=== PATIENT | male | born 1990 | race Caucasian/White ===

== ENCOUNTER 2023-04-05 14:06 | Emergency (ER) | payer BC, SELFPAY ==
[2023-04-05 14:07] VITALS: BP 121/89; PULSE 111; RESP 18; TEMP 36.4; O2SAT 100; BMI 26.9
--- NOTE | 2023-04-05 16:01 | EDS_ITS ---
HPI History of Present Illness Chief Complaint: ETOH Intox Informant: patient Narrative Narrative: Patient states he is an alcoholic seeking detox. He drinks between 4 and 8 tall boy beers daily, sometimes a lot more. has been doing this for maybe a year or so. He has not been into detox before. His last drink was 2 days ago. He states other than craving to drink he has no other symptoms. States he stopped cold turkey wants and did not drink for about 2 weeks but and ended up relapsing. He did not have any issues during those 2 weeks other than craving. He is concerned he will not be able to stay away from alcohol, other than that episode he has not been able to stop for more than 24 hours. He denies any physical illness recently, injury, suicidality, or other drug use. Patient states the reason that he wants to stop is that he has a new job, he went to a bar this past weekend, he drink a lot more than usual and then does not remember driving home. He states this concerned him to the point where he realized he needs to make a change in order to better his life. [facility] Medical History (Updated 04/05/23 @ 16:[address] Brodie Zee MD) Alcoholism Home Medications buspirone 10 mg tablet 10 mg PO DAILY 04/05/23 [History Last Taken 04/05/23] Allergy/AdvReac Type Severity Reaction Status Date / Time No Known Allergies Allergy Verified 04/05/23 14:07 Social History Smoking Status: Current every day smoker tobacco type: cigarettes ROS ROS ED Constitutional Constitutional ED: Denies chills or fever(s) Eyes Eyes: Denies change in vision or diplopia ENT ENT ED: Denies rhinorrhea or sore throat Cardiovascular Cardiovascular: Denies chest pain or palpitations Respiratory/Chest Respiratory/Chest: Denies cough or dyspnea Gastrointestinal Gastrointestinal: Denies abdominal pain, diarrhea, nausea or vomiting Genitourinary Genitourinary ED: Denies dysuria or hematuria Musculoskeletal Musculoskeletal: Denies back pain or neck pain Integumentary Denies abscess or rash Neurologic Neurologic: Denies headache(s), paresthesias or weakness Psychiatric Psychiatric: Denies anxiety or suicidal thoughts EXAM Physical Exam Const Vital Signs: 04/05/23 14:07 Temperature 97.5 F L Temperature Source Temporal Pulse Rate 111 H Respiratory Rate 18 Blood Pressure 121/89 H Blood Pressure Mean 99 Pulse Ox 100 Oxygen Delivery Method Room Air Positive well nourished and well developed General Appearance ED: well developed and NAD HEENT Reports moist mucous membranes normocephalic and atraumatic Eyes PERRL and EOMs intact bilaterally Neck full ROM and supple Resp normal respiratory effort and clear to auscultation bilaterally Cardio regular rate, regular rhythm and no murmurs GI non-tender and non-distended Auscultation: normoactive bowel sounds Palpation: soft Back/Spine no CVA tenderness General Back: other FROM Extremity normal to inspection General Extremety ED: Negative for edema, pulses abnormal or tenderness General Extremity: Negative for edema or pulses abnormal Neuro oriented x3, CN's II-XII intact bilaterally and no sensory deficits noted Sensorium / Orientation: awake and alert Motor Exam: strength 5/5 throughout Skin no rashes or lesions noted and no wounds MDM MDM MDM Narrative Medical decision making narrative: Labs obtained patient medically cleared. He is not in withdrawal. He has not had a drink in almost 48 hours. Given this, I did discuss with hospitalist, who states they have little to offer him since we do not have Vivitrol here, I tend to agree, I do not think he needs to be admitted medically, and since he is here during business hours I had social work discussed with [facility], and they were able to get him appointment for the morning. I given a work note for today and tomorrow, he is comfortable with that plan. Lab Data Attestation: I reviewed the patient's lab results. Labs: Laboratory Results - last 24 hr 04/05/23 15:50 WBC 10.3 RBC 4.85 Hgb 15.2 Hct 44.4 MCV 91.5 MCH 31.3 MCHC 34.2 RDW Std Deviation 39.8 RDW Coeff of Raimundo 11.9 Plt Count 297 MPV 9.5 Immature Gran % (Auto) 0.500 Neut % (Auto) 62.8 Lymph % (Auto) 25.8 [place] % (Auto) 6.1 Eos % (Auto) 3.9 Baso % (Auto) 0.9 Absolute Neuts (auto) 6.5 Absolute Lymphs (auto) 2.66 Nucleated RBC % 0 PT 13.7 INR 1.1 Sodium 139 Potassium 3.7 Chloride 109 H Carbon Dioxide 26.0 Anion Gap 4 L BUN 17 Creatinine 1.09 Estim Creat Clear Calc 102.66 Est GFR (MDRD) Af Amer 100 Est GFR (MDRD) Non-Af 83 BUN/Creatinine Ratio 15.6 Glucose 91 Calcium 9.3 Total Bilirubin 0.30 AST 17 ALT 35 Alkaline Phosphatase 95 Total Protein 7.5 Albumin 3.9 Globulin 3.6 Albumin/Globulin Ratio 1.1 Ethyl Alcohol < 3.0 Management Discussion w/another healthcare provider: Hospitalist and greenhouse worker/Case management Discharge Plan Triage Chief Complaint: ETOH Intox ED Provider: Brodie Zee Dx/Rx/DC Orders Clinical Impression: Alcohol dependence Instructions: Alcohol Addiction Prescriptions: No Action buspirone 10 mg tablet 10 mg PO DAILY Stand Alone Forms: ED Work / School Excuse Primary Care Provider: Jn Matthews Referrals: Jn Matthews MD [Primary Care Provider] - [facility] [Non-Staff] - 04/06/23 8:30 am Disposition Disposition: Home, Self Care
[2023-04-05 16:04] LABS: Absolute Lymphocyte Count 2.66 X10^3/uL (0.83-4.51); Absolute Neutrophil Count 6.5 X10^3/uL (2.0-7.7); Basophil# 0.09 X10^3/uL; Basophil% 0.9 % (0-1); Eosinophils% 3.9 % (0-5); Hematocrit 44.4 % (40-54); Hemoglobin 15.2 g/dL (13.0-16.5); Lymphocyte # 2.66 X10^3/ul (0.83-4.51); Lymphocyte % 25.8 % (19-41); Mean Corp Hgb Conc 34.2 g/dL (32-36); Mean Corpuscular Hgb 31.3 pg (27.0-32.0); Mean Corpuscular Volume 91.5 fL (80-94); Mean Platelet Vol. 9.5 fl (6.2-12.0); Monocyte# 0.63 X10^3/uL; Monocyte% 6.1 % (0-10); NRBC Flagged by Analyzer 0 % (0-5); Neutrophil # 6.47 X10^3/uL (2.7-7.7); Neutrophil % 62.8 % (47-70); Platelet Count 297 K/mm3 (150-450); RBC Distribution Width CV 11.9 % (11.6-14.6); RBC Distribution Width SD 39.8 fl (35.1-43.9); Red Blood Count 4.85 M/mm3 (4.6-6.2); White Blood Count 10.3 K/mm3 (4.4-11.0)
[2023-04-05 16:11] LABS: ALB/GLOB Ratio 1.1 RATIO (0.9-2.4); AST(SGOT) 17 U/L (15-37); Alanine Aminotransfer ALT/SGPT 35 U/L (16-61); Albumin, Serum 3.9 g/dL (3.2-5.0); Alkaline Phosphatase 95 U/L (45-117); Anion Gap 4 (5-15); BUN 17 mg/dL (7-18); BUN/Creat Ratio 15.6 RATIO (10-20); Calcium,Total 9.3 mg/dL (8.5-10.1); Chloride 109 mmol/L (98-107); Creatinine, Serum 1.09 mg/dL (0.70-1.30); EST Glomerular Filtration Rate 83 mL/min (>60); Est Glom Filt Rate - Afr Amer 100 mL/min (>60); Estimated Creatinine Clearance 102.66 ml/min; Globulin 3.6 g/dL (2.2-4.2); Glucose 91 mg/dL (74-106); Potassium 3.7 mmol/L (3.5-5.1); Protein, Total 7.5 g/dL (6.4-8.2); Sodium Level 139 mmol/L (136-145)
[2023-04-05 16:17] LABS: International Normalized Ratio 1.1; Prothrombin Time (Protime)PT. 13.7 SECONDS (11.7-14.9)
[2023-04-05 16:28] LABS: Alcohol, Blood (Medical)-Serum < 3.0 mg/dL
--- NOTE | 2023-04-05 16:38 | CM.ED ---
Social Work SW introduced self and role to patient. Pt is here for detox but does not meet criteria due to lack of withdrawal symptoms. Pt reports he does not have [facility] or mental health services with any agency and has never been through treatment. Pt indicated he was drinking about 4 beers daily, sometimes more but also that the last time he drank he used cocaine as well. Pt reports it has been affecting him financially and at work. Pt reports cravings as the major concern because he craves alcohol frequently. SW discussed options with patient and pt was agreeable to trying outpatient services. SW called [facility] treatment navigator and facilitated an intake appointment for tomorrow morning 04/06/2023 at 8:30. Patient given appointment info and was agreeable. Pt also given addiction coping skills handout to assist in managing cravings until he has services. Elsie Maurer THERAPY COORDINATOR, NATURAL RESOURCE E[employer]OMIST
== END 2023-04-05 16:48 | disposition home or self-care (01) ==
PROVIDERS: Emergency Provider Emergency Medicine; PCP Family Medicine; Visit Provider Emergency Medicine
DX: F10.20 Alcohol dependence, uncomplicated (principal); F17.210 Nicotine dependence, cigarettes, uncomplicated
CPT/HCPCS: 80053; 82077; 85025; 85610; 99283; A4216

== ENCOUNTER 2023-07-13 05:40 | Emergency (ER) | payer BC, SELFPAY ==
[2023-07-13 05:40] VITALS: BP 126/96; PULSE 105; RESP 16; TEMP 36.3; O2SAT 97; BMI 27.6
--- NOTE | 2023-07-13 05:56 | RAD_ITS ---
INDICATION: pain EXAMINATION/TECHNIQUE: X-RAY - LEFT XR Foot Min 3 Views COMPARISON: None. FINDINGS: SOFT TISSUES: No significant soft tissue swelling. No radiopaque foreign body detected. BONES/JOINTS: No acute fracture or subluxation. Normal alignment. Preservation of the joint space(s). No suspicious osseous lesion observed. RAD/Foot min 3 Views IMPRESSION: Negative left foot Electronically Signed: Eliu Posadas MD at 6:41 EST ,
--- NOTE | 2023-07-13 05:57 | ED.VIS.LOWEX ---
HPI History of Present Illness Chief Complaint: Lower Extremity Injury Informant: patient Narrative Narrative: Worsening left midfoot pain this morning. Has issues for months. Works on his feet with steel toe boots. Denies any injury events. Pain worse with weightbearing and walking. No medications taken. Denies history of gastric ulcers or kidney injury. Prior similar symptoms: Yes [facility] Medical History Alcoholism Anxiety Depression Home Medications buspirone 10 mg tablet 10 mg PO DAILY 04/05/23 [History Last Taken 04/05/23] ibuprofen 600 mg tablet 600 mg PO Q6H PRN PRN pain #20 TABLETS 07/13/23 [Rx Last Taken Unknown] sertraline 100 mg tablet 100 mg PO DAILY 07/13/23 [History Last Taken Unknown] Allergy/AdvReac Type Severity Reaction Status Date / Time No Known Allergies Allergy Verified 07/13/23 05:45 Social History Smoking Status: Current every day smoker tobacco type: cigarettes ROS ROS ED Constitutional Constitutional ED: Denies chills, fever(s) or sweats Eyes Eyes: Denies change in vision ENT ENT ED: Denies dysphagia or sore throat Cardiovascular Cardiovascular: Denies chest pain, leg edema, palpitations or racing heartbeat Respiratory/Chest Respiratory/Chest: Denies cough, dyspnea or dyspnea on exertion Gastrointestinal Gastrointestinal: Denies abdominal pain, diarrhea, nausea or vomiting Genitourinary Genitourinary ED: Denies dysuria, hematuria or urinary frequency Musculoskeletal Musculoskeletal: Reports extremity pain; Denies back pain or neck pain Integumentary Denies rash or wounds Neurologic Neurologic: Denies headache(s), paresthesias or weakness EXAM Physical Exam Const Vital Signs: 07/13/23 05:40 Temperature 97.4 F L Temperature Source Temporal Pulse Rate 105 H Respiratory Rate 16 Blood Pressure 126/96 H Blood Pressure Mean 106 Pulse Ox 97 Oxygen Delivery Method Room Air Positive well nourished and well developed General Appearance ED: well developed and NAD HEENT Reports moist mucous membranes normocephalic and atraumatic Eyes PERRL, EOMs intact bilaterally and conjunctivae normal General Eye ED: Yes normal appearance of both eyes Neck no lymphadenopathy and supple General: Negative for tenderness Chest Wall Chest: Negative for tenderness Resp normal respiratory effort and normal air movement Effort and Inspection: symmetric chest movement; Negative for respiratory distress Cardio regular rate, regular rhythm and no murmurs Peripheral Pulses: pulses 2+ throughout GI normal to inspection, nondistended, normoactive bowel sounds and non-tender Palpation: Negative for guarding or rebound tenderness present Back/Spine no CVA tenderness and no thoracic nor lumbar tenderness Extremity Extremity Narrative: Lower; no ankle tenderness. Mild tenderness across the midfoot. No plantar fascia tenderness. Second third toes dorsal aspect notes warts nontender. No drainage. General Extremety ED: Yes tenderness; Negative for edema General Extremity: Negative for edema Neuro oriented x3 and no sensory deficits noted Sensorium / Orientation: awake and alert Skin no rashes or lesions noted and no wounds MDM MDM MDM Narrative Medical decision making narrative: Interventions / MDM: Differential diagnosis: Sprain, warts Diagnosis considered but do not suspect: Fracture however x-ray negative. My EKG interpretation: N/A Imaging independently reviewed and interpreted by myself: Left foot 3 view x-ray: No fracture noted. External documents reviewed: N/A Test considered but not ordered:N/A ED course: Patient midfoot pain is worsening. Motrin ordered x-ray ordered for further evaluation. X-ray negative. Work note and prescription for NSAIDs with podiatry follow-up. Re-evaluation: stable Disposition discussed with patient/family/significant other: Patient Case discussed with consulting clinician: N/A This note was generated with [employer] dictation software. It may contain incorrect words, spelling, and punctuation that were not noted in checking the note before signing. Radiography Diagnostic Testing: Clinical Impression(s) from Imaging Studies Foot X-Ray 07/13/23 05:56 IMPRESSION: Negative left foot Electronically Signed: Eliu Posadas MD at 6:41 EST , Discharge Plan Triage Chief Complaint: Lower Extremity Injury ED Provider: Morteza Benitez Dx/Rx/DC Orders Clinical Impression: Warts of foot, Sprain of left foot Instructions: ED Foot Sprain, ED Warts, Nongenital Prescriptions: New ibuprofen 600 mg tablet 600 mg PO Q6H PRN PRN (Reason: pain) Qty: 20 0RF No Action buspirone 10 mg tablet 10 mg PO DAILY sertraline 100 mg tablet 100 mg PO DAILY Patient Comments: take 1/2 tablet by mouth once daily Stand Alone Forms: ED Work / School Excuse Primary Care Provider: Jn Matthews Referrals: Myron Telles DPM [Med Staff - Active Staff] - 3-5 Days Jn Matthews MD [Primary Care Provider] - Activity Restrictions/Additional Instructions: X-ray of foot negative. Take medication as prescribed. Follow-up with podiatry for evaluation and treatment of your warts. Disposition Disposition: Home, Self Care Discharge Date/Time: 07/13/23 06:41
[2023-07-13] MEDS: Ibuprofen 600 MG Tablet PO (06:12)
== END 2023-07-13 06:41 | disposition home or self-care (01) ==
PROVIDERS: Emergency Provider Emergency Medicine; PCP Family Medicine; Visit Provider Emergency Medicine
DX: B07.9 Viral wart, unspecified (principal); F17.210 Nicotine dependence, cigarettes, uncomplicated; S93.602A Unspecified sprain of left foot, initial encounter; X58.XXXA Exposure to other specified factors, initial encounter; F41.9 Anxiety disorder, unspecified; F32.A Depression, unspecified
CPT/HCPCS: 73630; 99282

== ENCOUNTER → 2023-07-21 | Outpatient (CLI) | payer BC, SELFPAY ==
[2023-07-21 13:16] LABS: ALB/GLOB Ratio 1.1 RATIO (0.9-2.4); AST(SGOT) 22 U/L (15-37); Alanine Aminotransfer ALT/SGPT 40 U/L (16-61); Albumin, Serum 4.1 g/dL (3.2-5.0); Alkaline Phosphatase 89 U/L (45-117); Anion Gap 8 (5-15); BUN 16 mg/dL (7-18); BUN/Creat Ratio 14.4 RATIO (10-20); Chloride 108 mmol/L (98-107); Creatinine, Serum 1.11 mg/dL (0.70-1.30); EST Glomerular Filtration Rate 81 mL/min (>60); Est Glom Filt Rate - Afr Amer 98 mL/min (>60); Globulin 3.7 g/dL (2.2-4.2); Glucose 77 mg/dL (74-106); Potassium 3.8 mmol/L (3.5-5.1); Protein, Total 7.8 g/dL (6.4-8.2); Sodium Level 139 mmol/L (136-145)
== END | disposition home or self-care (01) ==
LOC: LAB 10:28
PROVIDERS: PCP Family Medicine; Referring Provider Podiatrist; Visit Provider Podiatrist
DX: B35.3 Tinea pedis (principal)
CPT/HCPCS: 36415; 80053

== ENCOUNTER 2024-07-28 01:45 | Emergency (ER) | payer OTHER, SELFPAY ==
[2024-07-28 01:45] VITALS: BP 143/103; PULSE 100; RESP 14; TEMP 36.6; O2SAT 97; BMI 28.0
--- NOTE | 2024-07-28 02:00 | CT_ITS ---
EXAM: CT HEAD WITHOUT INTRAVENOUS CONTRAST CLINICAL INDICATION: GOMEZ TECHNIQUE: Multiple axial images were obtained of the head without intravenous contrast. This CT exam was performed using one or more of the following dose reduction techniques: automated exposure control, adjustment of the mA and/or kV according to patient size, and/or use of iterative reconstruction technique. RADIATION DOSE: CTDIvol = 44.99 mGy, DLP = 812.98 mGy-cm COMPARISON: No relevant prior studies available. FINDINGS: BRAIN AND EXTRA-AXIAL SPACES: Unremarkable. No intra- or extra-axial hemorrhage. No evidence of acute infarct. No intracranial mass or mass effect. There is preservation of the duran/white matter interface. Posterior fossa structures are unremarkable. Ventricles are appropriate for age. No hydrocephalus. Basal cisterns are patent. BONES/JOINTS: Unremarkable. No discrete lytic or blastic abnormalities. SINUSES: Unremarkable as visualized. Clear. MASTOID AIR CELLS: Unremarkable. Clear. ORBITS: Visualized globes, extraocular muscles, optic nerves and retrobulbar fat appear unremarkable. CT/Brain/Head without Contrast IMPRESSION: Negative head/brain CT without intravenous contrast. Electronically Signed: Myron Butt MD at 2:32 EST ,
--- NOTE | 2024-07-28 02:34 | EDS_ITS ---
HPI History of Present Illness Chief Complaint: Headache Narrative Narrative: Chief complaint and HPI: Headache. 34-year-old male with no significant past medical history presents for evaluation of resolved headache. Patient states that he was playing a video game when he developed a headache. He states the headache started gradually but then became very severe in nature. He states it lasted about 10 minutes. He states that the pain was behind his left eye. He states that he had some mild blurry vision and tearing of the left eye as well. He states that he felt like his nose was running but it was not. Currently denies headache. Headache was approximately 30 minutes prior to arrival. Patient denies any trauma. Denies any weakness, numbness/tingling. Denies any URI fever, chills, URI symptoms, chest pain, shortness of breath, Alcides pain, nausea, vomiting. Review of systems: See HPI Medications: As listed on the chart Allergies: As listed on the chart PFSH: Per chart Vital signs: As listed on the chart. Reviewed. Physical exam: Gen: A&O x3, NAD Head: Normocephalic, atraumatic Eyes: No sclera icterus, conjunctiva clear, PERRL, EOMI ENT: TMs clear BL, moist mucous membranes, posterior oropharynx unremarkable, uvula midline, no facial tenderness/sinus tenderness Neck: Trachea midline, No JVD, Full ROM, No meningismus CV: RRR, no murmurs, no peripheral edema Resp: Lungs CTA BL, no w/r/c Musc: Full ROM, no deformity Skin: Warm, dry, no rash Neuro: Alert, oriented, grossly intact, sensation intact Psych: Cooperative, appropriate mood and affect [facility] Medical History Alcoholism Anxiety Depression Home Medications ?Medication ?Instructions ?Recorded ?Last Taken ?Type buspirone 10 mg tablet 10 mg PO DAILY 04/05/23 04/05/23 History Allergy/AdvReac Type Severity Reaction Status Date / Time No Known Allergies Allergy Verified 07/13/23 05:45 Social History Smoking Status: Current every day smoker tobacco type: cigarettes EXAM Physical Exam Const Vital Signs: 07/28/24 01:45 Temperature 97.8 F Temperature Source Oral Pulse Rate 100 Respiratory Rate 14 Blood Pressure 143/103 H Blood Pressure Mean 116 Pulse Ox 97 Oxygen Delivery Method Room Air MDM MDM MDM Narrative Medical decision making narrative: 34-year-old male presents for evaluation of resolved headache. Headache lasted approximately 10 minutes. Associated symptoms were pain behind the left eye, tearing of the left eye, feelings of rhinorrhea. Patient denies history of headaches. Differential diagnosis includes but is not limited to cluster headache, tension headache, migraine. Patient currently not in any pain therefore pain medicine not given. Suspect likely cluster headache however given that he rated his pain as severe and has never had pain like this before we will get CT head to rule out any acute intracranial abnormality. CT head without any acute intracranial abnormality. On reassessment, patient is still not having any headache. Patient stable to discharge home. Suspect cluster headache. Follow-up with PCP. Impression: 1. Headache, resolved 2. Suspect cluster headache Radiography Diagnostic Testing: Clinical Impression(s) from Imaging Studies Brain CT 07/28/24 02:00 IMPRESSION: Negative head/brain CT without intravenous contrast. Electronically Signed: Myron Butt MD at 2:32 EST , Discharge Plan Triage Chief Complaint: Headache ED Provider: Ki Burks Dx/Rx/DC Orders Clinical Impression: Headache Instructions: ED Headache Unspecified, ED Headache, Cluster Prescriptions: No Action buspirone 10 mg tablet 10 mg PO DAILY Primary Care Provider: Jn Matthews Referrals: Jn Matthews MD [Primary Care Provider] - 3-5 Days Activity Restrictions/Additional Instructions: Tylenol Motrin as needed for pain. Return back to the ED if symptoms change or worsen Print Language: Kiswahili Disposition Disposition: Home, Self Care
== END 2024-07-28 02:59 | disposition home or self-care (01) ==
PROVIDERS: Emergency Provider Surgery; PCP Family Medicine; Visit Provider Surgery
DX: R51.9 Headache, unspecified (principal); J34.89 Other specified disorders of nose and nasal sinuses; H57.12 Ocular pain, left eye; F41.9 Anxiety disorder, unspecified; F32.A Depression, unspecified
CPT/HCPCS: 70450; 99282